=== PATIENT | female | born 1965 | race Caucasian/White ===

== ENCOUNTER 2018-06-24 10:40 | Emergency (ER) | payer OTHER, SELFPAY ==
[2018-06-24 10:44] VITALS: BP 119/72; PULSE 81; RESP 15; TEMP 37.2; O2SAT 99; BMI 38.2
--- NOTE | 2018-06-24 10:59 | DI.RAD.S_ITS ---
PROCEDURE: XR CHEST 1V INDICATIONS: chest pain TECHNIQUE: One view of the chest was acquired. COMPARISON: [facility], , CHEST 2 VIEW, 03/12/2009, 17:35. FINDINGS: Surgical changes and devices: None. Lungs and pleura: Lungs are clear. No pleural effusions or pneumothorax. Mediastinum: Mediastinal contours appear normal. Heart size is normal. Bones and chest wall: No suspicious bony lesions. Overlying soft tissues appear unremarkable. IMPRESSION: No acute process. Dictated by: Lance Whitney M.D. on 06/24/2018 at 11:32 Approved by: Lance Whitney M.D. on 06/24/2018 at 11:33
[2018-06-24 11:18] LABS: Add Manual Diff / Slide Review NO; Basophils Absolute Auto 100 /uL (0-100); Basophils Percent Auto 0.7 % (0-2); Eosinophils Absolute Auto 300 /uL (0-450); Eosinophils Percent Auto 3.2 % (2-4); Hematocrit 41.8 % (36-46); Lymphocytes Absolute Auto 1800 /uL (1100-4500); Lymphocytes Percent Auto 23.4 % (25-40); Mean Corpuscular HGB Conc 33.5 % (30-36); Mean Corpuscular Hemoglobin 29.9 PG (26-34); Mean Corpuscular Volume 89.2 fL (80-100); Monocytes Absolute Auto 700 /uL (0-900); Monocytes Percent Auto 9.2 % (3-14); Neutrophils Absolute Auto 5000 /uL (1500-7000); Neutrophils Percent Auto 63.5 % (50-75); Platelet Count 344 X10^3/uL (150-400); Red Blood Cell Count 4.69 X10^6/uL (4.0-5.2); Red Cell Distribution Width 12.8 % (11.6-14.8); White Blood Cell Count 7.9 X10^3/uL (4.5-11.0)
[2018-06-24 11:20] LABS: Alanine Aminotransferase 35 IU/L (9-52); Albumin 4.2 g/dL (3.5-5.0); Albumin Globulin Ratio 1.5 (1.0-2.8); Alkaline Phosphatase 70 U/L (38-126); Aspartate Aminotransferase 22 IU/L (14-36); BUN Creatinine Ratio 16.7 (6-22); Bilirubin Total 0.3 mg/dL (0.2-1.3); Blood Urea Nitrogen 15 mg/dL (7-17); Calcium 8.5 mg/dL (8.4-10.2); Carbon Dioxide 25 mmol/L (22-32); Chloride 103 mmol/L (98-107); Creatine Kinase 59 U/L (30-135); Estimated Glomerular Filt Rate > 60.0 mL/min (>60); Globulin 2.8 g/dL (1.7-4.1); Glucose 100 mg/dL (70-100); HEMOLYSIS < 15 (0-50); Lipase 129 U/L (23-300); Potassium 4.3 mmol/L (3.4-5.1); Sodium 139 mmol/L (137-145)
[2018-06-24] MEDS: ASPIRIN 81 MG TAB 324 MG PO (11:21)
[2018-06-24] MEDS: SODIUM CHLORIDE 0.9% 1,000 ML 150 ML IV (11:21)
[2018-06-24 11:32] LABS: Troponin I < 0.012 ng/mL (0.01-0.034)
--- NOTE | 2018-06-24 11:41 | ED.CHESTPAIN ---
HPI - Chest Pain General Chief Complaint: Chest Pain Stated Complaint: chest pain Time Seen by Provider: 06/24/18 11:40 Source: patient Mode of arrival: ambulatory Limitations: no limitations History of Present Illness HPI narrative: Patient is a 52-year-old female who presents with chest discomfort. She states it came on suddenly went straight to the back she has been short of breath with exertion. She felt like she was going to lose control of her bowel and urine. She took a nitroglycerin prior to arrival which she says helped. She actually had an abnormal stress test was a month ago because she was having the symptoms found to have an abnormality. She is scheduled to see a division chief through [facility] July 05 but has not yet seen 1. She has been short of breath with exertion ongoing for awhile. Patient states that she has actually had chest heaviness and discomfort everyday ongoing for about a month. She had a stress test 06/14/2018 which did show the defect. For the last 3 days she has been more short of breath with exertion and today the pain that she experienced was the worst she has ever had. MD complaint: chest pain Duration: improved and now resolved Onset: during rest and during exertion Pain location: left chest Pain radiation: back Relieving factors: nitroglycerin Treatments prior to arrival chest pain: nitroglycerin Related Data Home Medications Medication Instructions Recorded Confirmed amitriptyline 25 mg PO BEDTIME 06/24/18 06/24/18 atorvastatin 40 mg PO BEDTIME 06/24/18 06/24/18 metoprolol succinate 25 mg PO BID 06/24/18 06/24/18 nitroglycerin 0.4 mg SUBLINGUAL Q5-15M PRN 06/24/18 06/24/18 Allergies Allergy/AdvReac Type Severity Reaction Status Date / Time codeine [CODEINE] Allergy Unknown HEART Verified 06/24/18 10:44 RACES VOMITING Review of Systems Review of Systems GENERAL: Denies chills, fatigue, malaise, fever, sweats, travel HEENT: Denies sinus pain, ear pain, sore throat, difficulty swallowing, neck pain RESPIRATORY: Denies dyspnea, cough, wheezing, hemoptysis, sputum. CARDIOVASCULAR: See HPI GASTROINTESTINAL: Denies nausea, vomiting, abdominal pain, diarrhea, constipation, melena. : Denies dysuria, frequency, incontinence, hematuria, urinary retention, flank pain. MUSCULOSKELETAL: Denies weakness, joint pain, or bony pain SKIN: No rash, no erythema, no pruritus NEUROLOGIC: Denies weakness, dizziness, headache, numbness, change in speech, confusion PSYCHIATRIC: No concerning psychosocial issues. 12 point review of systems is negative except for those stated above and HPI [facility] Medical History Trigeminal neuralgia (Acute) Surgical History Status post hernia repair Status post hysteroscopy (11/26/07) Status post tonsillectomy and adenoidectomy Social History Smoking Status: Never smoker Social History Smoking Status: Never smoker Exam Initial Vital Signs Initial Vital Signs: Vital Signs Temperature 99.0 F 06/24/18 10:44 Pulse Rate 81 06/24/18 10:44 Respiratory Rate 15 06/24/18 10:44 Blood Pressure 119/72 06/24/18 10:44 Pulse Oximetry 99 06/24/18 10:44 GENERAL: Well-appearing, well-nourished and in no acute distress. HEENT: Head atraumatic,EOMI, pupils reactive, face symmetric, CARDIOVASCULAR: Regular rate and rhythm without murmurs, rubs or gallops. RESPIRATORY: Breath sounds equal bilaterally, no wheezes rales or rhonchi. ABDOMEN: Soft, nontender. Normoactive bowel sounds all 4 quadrants. No guarding or rebound. EXTREMITIES: Normal range of motion, no clubbing or edema. Neurovascularly intact NEUROLOGICAL: Alert and oriented x4.Normal gait and speech. Cranial nerves II through XII grossly intact. SKIN: Warm, dry, no laceration, no petechiae, no rashes or lesions. Course Orders Ordered: ED Orders 06/24/18 10:53 Complete Blood Count AUTO DIFF Stat Comprehensive Metabolic Panel Stat Lipase Stat Troponin & CK Cardiac Panel Stat 06/24/18 10:59 XR chest 1V Stat 06/24/18 12:39 Urine Microscopic Stat 06/24/18 13:59 Troponin I Stat Discontinued Medications Aspirin (Aspirin Chew) 324 mg PO NOW ONE Stop: 06/24/18 11:00 Last Admin: 06/24/18 11:21 Dose: 324 mg Sodium Chloride (Normal Saline 0.9%) 1,000 mls @ 150 mls/hr IV CONT CORIE Last Infusion: 06/24/18 16:22 Dose: 0 mls/hr Admin: 06/24/18 11:21 Dose: 150 mls/hr Vital Signs - 8 hr 06/24/18 10:44 06/24/18 12:30 06/24/18 13:00 Temperature 99.0 F Pulse Rate 81 78 82 Respiratory Rate 15 14 23 Blood Pressure 119/72 Blood Pressure [Right Arm] 130/74 123/73 Pulse Oximetry 99 99 100 06/24/18 14:30 06/24/18 15:36 Temperature Pulse Rate 92 H 79 Respiratory Rate 18 17 Blood Pressure Blood Pressure [Right Arm] 120/61 125/71 Pulse Oximetry 99 96 MDM - Chest Pain Lab Data Attestation: I reviewed the patient's lab results. Result diagrams: 06/24/18 10:53 06/24/18 10:53 Lab Results 06/24/18 06/24/18 06/24/18 Range/Units 10:53 10:53 12:39 WBC 7.9 (4.5-11.0) X10^3/uL RBC 4.69 (4.0-5.2) X10^6/uL Hgb 14.0 (12.0-16.0) g/dL Hct 41.8 (36-46) % MCV 89.2 (80-100) fL MCH 29.9 (26-34) PG MCHC 33.5 (30-36) % RDW 12.8 (11.6-14.8) % Plt Count 344 (150-400) X10^3/uL Neut % (Auto) 63.5 (50-75) % Lymph % (Auto) 23.4 L (25-40) % [place] % (Auto) 9.2 (3-14) % Eos % (Auto) 3.2 (2-4) % Baso % (Auto) 0.7 (0-2) % Neut # (Auto) 5000 (9872-4642) /uL Lymph # (Auto) 1800 (2601-2591) /uL [place] # (Auto) 700 (0-900) /uL Eos # (Auto) 300 (0-450) /uL Baso # (Auto) 100 (0-100) /uL Sodium 139 (137-145) mmol/L Potassium 4.3 (3.4-5.1) mmol/L Chloride 103 (98-107) mmol/L Carbon Dioxide 25 (22-32) mmol/L BUN 15 (7-17) mg/dL Creatinine 0.90 (0.52-1.04) mg/dL Estimated GFR > 60.0 (>60) mL/min BUN/Creatinine Ratio 16.7 (6-22) Glucose 100 (70-100) mg/dL Calcium 8.5 (8.4-10.2) mg/dL Total Bilirubin 0.3 (0.2-1.3) mg/dL AST 22 (14-36) IU/L ALT 35 (9-52) IU/L Alkaline Phosphatase 70 (38-126) U/L Total Creatine Kinase 59 (30-135) U/L CK-MB (CK-2) TNP CK-MB (CK-2) Rel Index TNP Troponin I < 0.012 (0.01-0.034) ng/mL Total Protein 7.0 (6.3-8.2) g/dL Albumin 4.2 (3.5-5.0) g/dL Globulin 2.8 (1.7-4.1) g/dL Albumin/Globulin Ratio 1.5 (1.0-2.8) Lipase 129 (23-300) U/L Urine RBC 1-5/hpf (0-5/HPF) Urine WBC 1-5/hpf (0-5/HPF) Ur Squamous Epith Cells 1-5 /hpf (0-5/HPF) Urine Bacteria None seen (None) Ur Culture Indicated? Cult not indicated 06/24/18 Range/Units 13:59 WBC (4.5-11.0) X10^3/uL RBC (4.0-5.2) X10^6/uL Hgb (12.0-16.0) g/dL Hct (36-46) % MCV (80-100) fL MCH (26-34) PG MCHC (30-36) % RDW (11.6-14.8) % Plt Count (150-400) X10^3/uL Neut % (Auto) (50-75) % Lymph % (Auto) (25-40) % [place] % (Auto) (3-14) % Eos % (Auto) (2-4) % Baso % (Auto) (0-2) % Neut # (Auto) (9271-6170) /uL Lymph # (Auto) (3855-0912) /uL [place] # (Auto) (0-900) /uL Eos # (Auto) (0-450) /uL Baso # (Auto) (0-100) /uL Sodium (137-145) mmol/L Potassium (3.4-5.1) mmol/L Chloride (98-107) mmol/L Carbon Dioxide (22-32) mmol/L BUN (7-17) mg/dL Creatinine (0.52-1.04) mg/dL Estimated GFR (>60) mL/min BUN/Creatinine Ratio (6-22) Glucose (70-100) mg/dL Calcium (8.4-10.2) mg/dL Total Bilirubin (0.2-1.3) mg/dL AST (14-36) IU/L ALT (9-52) IU/L Alkaline Phosphatase (38-126) U/L Total Creatine Kinase (30-135) U/L CK-MB (CK-2) CK-MB (CK-2) Rel Index Troponin I < 0.012 (0.01-0.034) ng/mL Total Protein (6.3-8.2) g/dL Albumin (3.5-5.0) g/dL Globulin (1.7-4.1) g/dL Albumin/Globulin Ratio (1.0-2.8) Lipase (23-300) U/L Urine RBC (0-5/HPF) Urine WBC (0-5/HPF) Ur Squamous Epith Cells (0-5/HPF) Urine Bacteria (None) Ur Culture Indicated? Urine Dip Bedside Urine Glucose Negative Bedside Urine Bilirubin - Negative Bedside Urine Ketone - Negative Urine Specific [place] 1.010 Bedside Urine Occult Blood +/- Bedside Urine pH 8.0 Bedside Urine Protein - Negative Bedside Urine Urobilinogen - Negative Bedside Urine Nitrite - Negative Bedside Urine Leukocytes - Negative Esterase Imaging Data Chest x-ray: Radiologist's impression: PROCEDURE: XR CHEST 1V INDICATIONS: chest pain TECHNIQUE: One view of the chest was acquired. COMPARISON: [facility], , CHEST 2 VIEW, 03/12/2009, 17:35. FINDINGS: Surgical changes and devices: None. Lungs and pleura: Lungs are clear. No pleural effusions or pneumothorax. Mediastinum: Mediastinal contours appear normal. Heart size is normal. Bones and chest wall: No suspicious bony lesions. Overlying soft tissues appear unremarkable. IMPRESSION: No acute process. Dictated by: Lance Whitney M.D. on 06/24/2018 at 11:32 ECG Data Attestation: I personally reviewed and interpreted this ECG as follows: Prior ECG tracings: not available for review Interpretation: Normal sinus rhythm rate 82 dear interval [address] depressions or elevations no T-wave inversions. MDM Narrative Medical decision making narrative: The patient has been having increasing shortness of breath with a exertion over the last 3 days with intense pain today. She has had symptoms for about 1 month with worsening pain today. She has been pain-free in the ED after her 1 nitroglycerin at home. I have spoken with Dr. Cyndy Card doctor who has called Dr. Pratt at [facility] in [place], who agrees patient needs to be transferred for further evaluation. Dr. Pop excepts patient Discharge Plan Departure Patient Disposition: [facility] Clinical Impression: Chest pain Qualifiers: Chest pain type: unspecified Qualified Code(s): R07.9 - Chest pain, unspecified Discharge Date/Time: 06/24/18 16:23 Interventions: ED Discharge Assessment Last Done: 06/24/18 16:23 Prescriptions: No Action atorvastatin 20 mg Tablet 40 mg PO BEDTIME RF: 0 nitroglycerin 0.4 mg Tablet, Sublingual 0.4 mg SUBLINGUAL Q5-15M PRN (Reason: Chest Pain) RF: 0 metoprolol succinate 25 mg Tablet Extended Release 24 Hr 25 mg PO BID RF: 0 amitriptyline 25 mg Tablet 25 mg PO BEDTIME RF: 0 Referrals: Armida Kohler PA-C [Primary Care Provider] -
[2018-06-24 12:30] VITALS: BP 130/74; PULSE 78; RESP 14; O2SAT 99
[2018-06-24 12:57] LABS: Bacteria Urine None Seen
[2018-06-24 13:00] VITALS: BP 123/73; PULSE 82; RESP 23; O2SAT 100
[2018-06-24 13:20] LABS: Culture Indicated Urine Cult Not Indicated; RBC Urine 1-5/HPF (0-5/HPF); Squamous Epithelial Cell Urine 1-5 /HPF (0-5/HPF); WBC Urine 1-5/HPF (0-5/HPF)
[2018-06-24 14:30] VITALS: BP 120/61; PULSE 92; RESP 18; O2SAT 99
[2018-06-24 14:37] LABS: Troponin I < 0.012 ng/mL (0.01-0.034)
[2018-06-24 15:36] VITALS: BP 125/71; PULSE 79; RESP 17; O2SAT 96
== END 2018-06-24 16:23 | disposition short-term general hospital (02) ==
PROVIDERS: Emergency Provider Emergency Medicine; PCP Physician Assistant Medical
DX: R07.9 Chest pain, unspecified (principal); R06.02 Shortness of breath
CPT/HCPCS: 36415; 36591; 71045; 80053; 81003; 81015; 82550; 83690; 84484; 85025; 93005; 96360; 96361; 99284; 99285

== ENCOUNTER 2018-07-04 08:16 | Day surgery (SDC) | payer OTHER, SELFPAY ==
[2018-07-04] VITALS (8 sets, daily range): BP systolic 101–127; BP diastolic 58–82; PULSE 72–103; RESP 12–18; TEMP 36.4–37; O2SAT 96–100; BMI 35.7
[2018-07-04] MEDS: SODIUM CHLORIDE 0.9% 1,000 ML 150 ML IV (09:05)
--- NOTE | 2018-07-04 10:13 | PM.HP.1 ---
History of Present Illness Chief complaint: [id number] Patient History Medical History Trigeminal neuralgia (Acute) Surgical History Status post hernia repair Status post hysteroscopy (11/26/07) Status post tonsillectomy and adenoidectomy Social History household members: spouse Smoking Status: Never smoker Family & Social History Social History: household members spouse Tobacco & Substance use: Smoking Status Never smoker alcohol intake frequency holiday/special occasion Substance Use Type does not use Meds Home Medications Medication Instructions Recorded Confirmed Type amitriptyline 25 mg PO BEDTIME 06/24/18 07/04/18 History metoprolol succinate 25 mg PO BID 06/24/18 07/04/18 History nitroglycerin 0.4 mg SUBLINGUAL Q5-15M PRN 06/24/18 06/24/18 History Allergies Allergy/AdvReac Type Severity Reaction Status Date / Time codeine [CODEINE] Allergy Unknown HEART Verified 07/04/18 08:39 RACES VOMITING Review of Systems Review of Systems All systems reviewed & are unremarkable except as noted in HPI and below Exam Vital Signs (past 8 hours): - 07/04/18 08:41 Temperature 98.0 F Pulse Rate 87 Respiratory Rate 15 Blood Pressure 127/82 Pulse Oximetry 99 Oxygen Delivery Method Room Air Narrative Exam Narrative: Awake alert oriented x3, pupils equal round reactive to light, lungs clear, heart regular rate rhythm, abdomen soft nontender nondistended, no lower extremity edema Assessment & Plan Assessment & Plan narrative: Colon cancer screening, colonoscopy
[2018-07-04] MEDS: MIDAZOLAM 5 MG/5 ML VIAL IV (10:21)
[2018-07-04] MEDS: fentaNYL 250 MCG/5 ML INJ IV (10:22)
--- NOTE | 2018-07-04 10:41 | PM.OP.ENDO ---
Operative Date/Time/Diagnoses Date of procedure: 07/04/18 Procedure & Clinicians Study performed: Colonoscopy - diagnostic Moderate conscious sedation was administered by the endoscopy nurse and supervised by the endoscopist. The following parameters were monitored: Oxygen saturation, heart rate, blood pressure, and response to care. Sedation: 6 mg midazolam, 125 mcg fentanyl Indications: Colon cancer screening. This is the patient's 1st colonoscopy Procedure Notes Procedure in detail: Prior to the procedure, history and physical was performed, and patient medications and allergies were reviewed. Preprocedure nursing history and assessment was reviewed. Patient identification and proposed procedure were verified by the physician and nurse in the procedure room. The physical status of the patient was reassessed after the procedure. After informed consent was obtained including risks, benefits, and alternatives, the scope was passed under direct vision. Throughout the procedure, the patient's blood pressure, pulse, and oxygen saturations were monitored continuously. The colonoscope was introduced through the anus and advanced to the cecum as identified by the appendiceal orifice and ileocecal valve. The patient tolerated the procedure well. Bowel prep was deemed adequate to detect polyps greater than 5 mm. Perianal and digital rectal examinations were unremarkable. Retroflexion revealed grade 1 internal hemorrhoids. The entire examined colon was normal appearing. Impression: Normal appearing colon Internal hemorrhoids No specimens taken Sedation minutes: 20 Complications: other (EBL none. No complications) Plan for aftercare: Repeat colonoscopy in 10 years for screening purposes Resume home medications Resume previous diet Discharge home with escort
[2018-07-04] MEDS: ONDANSETRON 4 MG/2 ML INJ IV (10:49)
== END 2018-07-04 11:44 | disposition home or self-care (01) ==
PROVIDERS: PCP Physician Assistant Medical; Visit Provider Internal Medicine
PROC: 0DJD8ZZ Inspection of Lower Intestinal Tract, Via Natural or Artificial Opening Endoscopic (ICD-10-PCS; CPT 45378; principal; 2018-07-04 10:00)
DX: Z12.11 Encounter for screening for malignant neoplasm of colon (principal); K64.0 First degree hemorrhoids
CPT/HCPCS: 45378; J2250; J2405; J3010

== ENCOUNTER → 2018-07-05 12:39 | Outpatient (CLI) | payer OTHER, SELFPAY ==
--- NOTE | 2018-07-05 | DI.CT.S_ITS ---
PROCEDURE: CT ANGIO CHEST INDICATIONS: Chest pain, unspecified TECHNIQUE: After the administration of intravenous contrast, 2 mm thick sections acquired from the pulmonary apices to the posterior costophrenic angles. 3-dimensional maximum intensity projection (MIP) coronal and sagittal reformats were then acquired through the thorax. For radiation dose reduction, the following was used: automated exposure control, adjustment of mA and/or kV according to patient size. COMPARISON: [facility], CR, XR CHEST 1V, 06/24/2018, 11:12. FINDINGS: Image quality: Diagnostic. Pulmonary arteries: Pulmonary arteries are normal in size, and demonstrate no intraluminal filling defects to suggest central pulmonary embolism. Lungs and pleura: Mild atelectasis is identified within the bilateral posterior costophrenic angles. No focal consolidation, effusion, or pneumothorax is identified. No lung mass or pulmonary nodule is evident. Mediastinum: Heart size is normal, without pericardial effusion. No mediastinal or hilar adenopathy. Thoracic aorta is normal in caliber and enhancement. Esophagus is normal in caliber, without hiatal hernia. Bones and chest wall: No suspicious bony lesions. Ribs and thoracic spine appear intact throughout. Thyroid gland is not enlarged. No axillary or supraclavicular adenopathy. Abdomen: Visualized upper abdominal solid organs appear normal in the early arterial phase of enhancement. IMPRESSION: 1. No evidence of pulmonary embolism. 2. Mild posterior bibasilar atelectasis. No acute cardiopulmonary process is evident. Dictated by: Enrique Rushing M.D. on 07/05/2018 at 12:19 Approved by: Enrique Rushing M.D. on 07/05/2018 at 12:21
== END ==
PROVIDERS: PCP Physician Assistant Medical; Visit Provider Nurse Practitioner
DX: R07.9 Chest pain, unspecified (principal); J98.11 Atelectasis
CPT/HCPCS: 71275

== ENCOUNTER → 2018-07-27 08:32 | Outpatient (CLI) | payer OTHER, SELFPAY ==
--- NOTE | 2018-07-27 | DI.NM.S_ITS ---
PROCEDURE: NM HIDA WITH CCK PHARMACEUTICAL: 5.2 mCi Tc-99m mebrofenin IV; 2.1 mcg CCK IV. INDICATIONS: ABDOMINAL PAIN/RIGHT UPPER QUADRANT TECHNIQUE: Following intravenous administration of Tc-99m mebrofenin, sequential anterior abdominal images were obtained. To evaluate the contractile response of the gallbladder in response to Cholecystokinin (CCK), sincalide (0.02 ?g/kg) was administered by slow intravenous infusion approximately 60 minutes after the administration of the radiopharmaceutical. Sequential imaging was continued for 30 minutes after the start of CCK infusion. Gallbladder ejection fraction was calculated. COMPARISON: None. FINDINGS: Biliary scan: There is normal tracer uptake and excretion by the liver. There is normal visualization of the intrahepatic ducts, common bile duct, and gallbladder. There is normal tracer transit into the duodenum. CCK stimulation: There is normal contractile response of the gallbladder to CCK infusion. The calculated gallbladder ejection fraction is 84%; normal values are above 35%. It has been shown that any patient abdominal pain after CCK administration is related to the rate of CCK injection, rather than to any underlying gallbladder disease (Clinical Nuclear Medicine 2012; 37: 63-70. Journal of Nuclear Medicine 2014; 55: 1-9). IMPRESSION: Normal hepatobiliary scan, normal gallbladder ejection fraction well above the lower limits of normal at 84%. Dictated by: Cirilo Duque M.D. on 07/27/2018 at 13:02 Approved by: Cirilo Duque M.D. on 07/27/2018 at 13:03
== END ==
PROVIDERS: PCP Physician Assistant Medical; Visit Provider Physician Assistant Medical
DX: R10.11 Right upper quadrant pain (principal)
CPT/HCPCS: 78227; A9537; J2805

== ENCOUNTER → 2019-10-03 09:20 | Outpatient (CLI) | payer BC, SELFPAY | PROVIDERS: PCP Physician Assistant Medical | DX: N92.1 Excessive and frequent menstruation with irregular cycle (principal) | CPT/HCPCS: 36415; 83001 ==

== ENCOUNTER → 2019-12-19 07:15 | Outpatient (CLI) | payer BC, SELFPAY ==
--- NOTE | 2019-12-19 | DI.MRI.S_ITS ---
PROCEDURE: MR LUMBAR SPINE WO CON INDICATIONS: Radiculopathy, lumbar region TECHNIQUE: Noncontrast sagittal T1 spin echo and T2 fast echo, sagittal STIR, axial T1 and T2 fast spin echo through the lumbar spine. In cases with scoliosis, additional coronal T2 fast spin echo may be performed. COMPARISON: [facility], CR, CHEST 2 VIEW, 03/12/2009, 17:35. [facility], CR, XR CHEST 1V, 06/24/2018, 11:12. [facility], CT, CT ANGIO CHEST, 07/05/2018, 12:48. [facility] Outside Film, RG, SPINE LUMB 2 OR 3VW, 03/25/2019, 12:34. [facility] Outside Film, RG, SPINE LUMB 2 OR 3VW, 03/27/2019, 12:35. FINDINGS: Image quality: Excellent. Alignment and Curvature: There is normal bony alignment. Bone Marrow: Marrow is of normal overall signal. An L2 superior endplate compression deformity is unchanged from March 27, 2019. Trace marrow edema persists in this region. Vertebral body height is otherwise preserved. Spinal Cord: Conus medullaris terminates at the T12 level. Visualized cord demonstrates normal signal and size. Paraspinous Soft Tissues: No paravertebral masses. There is a T1 hyperintense and a T1 hypointense lesion within the lower pole of the right kidney suggesting the presence of a renal cyst which is incompletely characterized on this limited view. L1-L2: Mild disc desiccation and height loss. Mild disc bulge. No canal stenosis. No foraminal stenosis. L2-L3: Mild disc bulge. No canal stenosis. No neural foraminal narrowing. L3-L4: Mild disc desiccation and height loss. Mild disc bulge. Mild facet and ligamentum flavum hypertrophy. No canal stenosis. Mild bilateral foraminal narrowing. L4-L5: Broad-based disc bulge. Moderate facet ligamentum flavum hypertrophy. No canal stenosis. Mild bilateral foraminal narrowing. L5-S1: Normal appearance. IMPRESSION: 1. Mild disc desiccation, height loss, broad-based disc bulges, and mild to moderate facet and ligamentum flavum hypertrophy throughout the lumbar spine. No significant canal stenosis or foraminal narrowing. 2. Compression deformity at the L2 endplate with trace marrow edema which is unchanged in appearance when compared with the plain film from March 27, 2019. 3. Probable large right renal cyst which is incompletely characterized. If further characterization is warranted, renal ultrasound could be used. Dictated by: Tarsha Griffith M.D. on 12/19/2019 at 8:47 Approved by: Tarsha Griffith M.D. on 12/19/2019 at 9:02
== END ==
PROVIDERS: PCP Physician Assistant Medical; Referring Provider Physician Assistant Medical; Visit Provider Orthopaedic Surgery Orthopaedic Surgery of the Spine
DX: M51.16 Intervertebral disc disorders with radiculopathy, lumbar region (principal)
CPT/HCPCS: 72148

== ENCOUNTER → 2020-04-27 09:07 | Outpatient (CLI) | payer BC, SELFPAY ==
[2020-04-27 11:03] LABS: COVID19 -Nasal RAPID Negative (Negative)
== END ==
PROVIDERS: PCP Physician Assistant Medical; Visit Provider Nurse Practitioner Family
DX: Z01.812 Encounter for preprocedural laboratory examination (principal); Z20.822 Contact with and (suspected) exposure to COVID-19
CPT/HCPCS: 87635

== ENCOUNTER → 2020-07-01 13:30 | Outpatient (CLI) | payer BC, SELFPAY ==
--- NOTE | 2020-07-01 | DI.CT.S_ITS ---
PROCEDURE: CT ABDOMEN PELVIS W CON INDICATIONS: Dorsalgia, unspecified TECHNIQUE: After the administration of oral and intravenous contrast, 5 mm thick sections acquired from the diaphragms to the symphysis. 5 mm thick coronal and sagittal reformats were performed. For radiation dose reduction, the following was used: automated exposure control, adjustment of mA and/or kV according to patient size. COMPARISON: US, PELVIC COMPLETE, 10/16/2014, 9:55. Outside Film, US, US ABDOMEN LIMITED, 03/29/2020, 7:10. [facility], MR, MR LUMBAR SPINE WO CON, 12/19/2019, 7:36. FINDINGS: Image quality: Excellent. ABDOMEN: Lung bases: Lung bases are clear. Heart size is normal. Solid organs: Liver is normal in size and enhancement. Tiny cyst in the right lobe of the liver. Gallbladder is unremarkable. Biliary system is non-dilated. Pancreas enhances normally. Spleen is normal in size and enhancement. No adrenal nodules. Kidneys are normal in size and enhancement, without hydronephrosis. Simple cyst in the inferior pole of the right kidney measuring 5.1 cm. Peritoneum and bowel: No bowel obstruction. Normal appendix. Prominent stool in the proximal colon. No free fluid or air. Nodes and vessels: No retroperitoneal or mesenteric adenopathy. Aorta and inferior vena cava are normal in caliber. Miscellaneous: No ventral hernias. PELVIS: Genitourinary: Bladder wall thickness is normal. Uterus is prominent. Fibroid seen on ultrasound 10/16/2014. Miscellaneous: Suspect small fat containing left inguinal hernia. No adenopathy. Bones: No suspicious bony lesions. Mild compression deformity at L2, similar to the prior MRI from 2019. IMPRESSION: Stable appearance of the mild L2 compression fracture. If clinically indicated MRI of the lumbar spine could be performed for further evaluation. Dictated by: Edwin Welch M.D. on 07/01/2020 at 15:49 Approved by: Edwin Welch M.D. on 07/01/2020 at 15:59
== END ==
PROVIDERS: PCP Physician Assistant Medical; Referring Provider Physician Assistant Medical; Visit Provider Urology
DX: N28.1 Cyst of kidney, acquired (principal); M48.56XS Collapsed vertebra, not elsewhere classified, lumbar region, sequela of fracture
CPT/HCPCS: 74177; Q9967